=== PATIENT | male | born 1955 | race Caucasian/White ===

== ENCOUNTER 2020-04-22 18:23 | Inpatient (IN) | payer BC, MEDICARE ==
[~2020-04-22 18:23] MED LIST: AUGMENTIN 875-1 EACH PO; BREO ELLIPTA 21 EACH INH; CEFUROXIME250 MG PO; CLARITIN 10MG T10 MG PO; CRESTOR5 MG PO; DALIRESP500 MCG PO; DIGOX125 MCG PO; DIGOXIN250 MCG PO; ELIQUIS5 MG PO; HUMIBID LA TAB600 MG PO; IPRAT-ALBUT 0.5-3 ML INH; K-DUR TAB 20 M20 MEQ PO; LEVAQUIN500 MG PO; LEXAPRO TAB 1010 MG PO; LOSARTAN POTASS25 MG PO; LUPRON DEPOT11.25 MG IM; MEDROL DOSEPAK 24 MG PO; METFORMIN HCL500 MG PO; METOPROLOL SUC100 MG PO; METOPROLOL SUCC25 MG PO; METOPROLOL SUCC50 MG PO; NEXIUM40 MG PO; POTASSIUM CHLO20 ME2 PO; PREDNISONE 10 M10 MG PO; PROAIR HFA8.5 GM INH; TRELEGY ELLIPT1 EACH INH; VITAMIN D250 MCG PO
[2020-04-22 19:49] LABS: HEMOGLOBIN 14.7 gm/dl (14.0-17.5); RED BLOOD COUNT 4.74 M/UL (4.20-5.50); WHITE BLOOD COUNT 8.7 K/UL (4.5-11.0)
[2020-04-22 20:41] LABS: BUN/CREATININE RATIO 20 (0-10)
[2020-04-22] MEDS ORDERED: ASPIRIN CHEWABL81 MG PO (21:31)
[2020-04-22] MEDS ORDERED: DIGOX125 MCG PO (21:32)
[2020-04-22] MEDS ORDERED: TRELEGY ELLIPT1 EACH INH (21:34)
[2020-04-23 04:52] LABS: RED BLOOD COUNT 4.28 M/UL (4.20-5.50)
[2020-04-23 05:16] LABS: WHITE BLOOD COUNT 4.8 K/UL (4.5-11.0)
[2020-04-23 05:51] LABS: BUN/CREATININE RATIO 32 (0-10)
[2020-04-24 05:21] LABS: HEMOGLOBIN 12.8 gm/dl (14.0-17.5); RED BLOOD COUNT 4.16 M/UL (4.20-5.50)
[2020-04-24 05:24] LABS: WHITE BLOOD COUNT 9.9 K/UL (4.5-11.0)
[2020-04-24 05:41] LABS: BUN/CREATININE RATIO 35 (0-10)
[2020-04-25 06:45] LABS: HEMOGLOBIN 12.1 gm/dl (14.0-17.5); RED BLOOD COUNT 3.96 M/UL (4.20-5.50)
[2020-04-25 07:12] LABS: BUN/CREATININE RATIO 32 (0-10)
[2020-04-26 03:44] LABS: HEMOGLOBIN 11.9 gm/dl (14.0-17.5); RED BLOOD COUNT 3.88 M/UL (4.20-5.50); WHITE BLOOD COUNT 7.8 K/UL (4.5-11.0)
[2020-04-26 04:16] LABS: BUN/CREATININE RATIO 43 (0-10)
[2020-04-26] MEDS ORDERED: DOXYCYCLINE HY100 MG PO (10:44)
[2020-04-26] MEDS ORDERED: DEXAMETHASONE2 MG PO (10:44)
[2020-04-26] MEDS ORDERED: INSULIN AS100 UNIT/3 SQ (10:52)
== END 2020-04-26 15:14 | disposition home or self-care (01) | DRG 871 ==
LOC: ER1 18:23 → CDU 20:56 → M/S 04-23 10:52
PROVIDERS: Emergency Medicine; Internal Medicine; ADMIT Internal Medicine
PROC: 8E0ZXY6 Isolation (ICD-10-PCS; principal; 2020-04-22)
PROC: XW033E5 Introduction of Remdesivir Anti-infective into Peripheral Vein, Percutaneous Approach, New Technology Group 5 (ICD-10-PCS; 2020-04-23)
DX: A41.9 Sepsis, unspecified organism (principal); U07.1 COVID-19; J12.89 Other viral pneumonia; J44.0 Chronic obstructive pulmonary disease with (acute) lower respiratory infection; J44.1 Chronic obstructive pulmonary disease with (acute) exacerbation; R65.20 Severe sepsis without septic shock; I10 Essential (primary) hypertension; E11.9 Type 2 diabetes mellitus without complications; I48.91 Unspecified atrial fibrillation; R00.0 Tachycardia, unspecified; Z79.01 Long term (current) use of anticoagulants; E78.5 Hyperlipidemia, unspecified; Z79.899 Other long term (current) drug therapy; Z79.82 Long term (current) use of aspirin
CPT/HCPCS: 36415; 71045; 80048; 80053; 82550; 82553; 82962; 83605; 83690; 83735; 83874; 83880; 84100; 84484; 85025; 85610; 85730; 86140; 87040; 90471; 93005; 94640; 94664; 94760; 96365; 96366; 96367; 96372; 96375; 96376; 99285; G0378; J0456; J1100; J1650; J2185; J7030

== ENCOUNTER 2020-05-03 13:07 | Emergency (ER) | payer BC ==
[~2020-05-03 13:07] MED LIST changes: +ASPIRIN CHEWABL81 MG PO; +DEXAMETHASONE2 MG PO; +DOXYCYCLINE HY100 MG PO; +INSULIN AS100 UNIT/3 SQ
[2020-05-03 14:32] LABS: HEMOGLOBIN 14.7 gm/dl (14.0-17.5); RED BLOOD COUNT 4.8 M/UL (4.20-5.50); WHITE BLOOD COUNT 16.4 K/UL (4.5-11.0)
[2020-05-03 15:00] LABS: BUN/CREATININE RATIO 42 (0-10)
== END 2020-05-03 20:21 | disposition home or self-care (01) ==
LOC: ER1 13:07
PROVIDERS: Emergency Medicine
DX: E11.65 Type 2 diabetes mellitus with hyperglycemia (principal); R00.0 Tachycardia, unspecified; I10 Essential (primary) hypertension; J44.9 Chronic obstructive pulmonary disease, unspecified; Z79.01 Long term (current) use of anticoagulants; Z99.81 Dependence on supplemental oxygen; Z79.84 Long term (current) use of oral hypoglycemic drugs; Z86.16 Personal history of COVID-19
CPT/HCPCS: 71045; 80053; 81001; 82009; 82550; 82553; 82962; 83605; 83690; 83735; 83874; 83880; 84484; 85025; 93005; 96374; 99285; J7030

== ENCOUNTER 2021-03-30 23:09 | Inpatient (IN) | payer BC, MEDICARE ==
[~2021-03-30] VITALS: Ht 175.3 cm; Wt 86.2 kg
[2021-03-31 00:02] LABS: HEMOGLOBIN 15.1 gm/dl (14.0-17.5); RED BLOOD COUNT 4.98 M/UL (4.20-5.50); WHITE BLOOD COUNT 13.5 K/UL (4.5-11.0)
[2021-03-31 00:30] LABS: BUN/CREATININE RATIO 34 (0-10)
[2021-03-31] MEDS ORDERED: FARXIGA10 MG PO (03:25)
[2021-03-31] MEDS ORDERED: ZOFRAN ODT 4 MG4 MG XX (03:28)
[2021-03-31] MEDS ORDERED: PREDNISONE10 MG PO (03:39)
[2021-03-31] MEDS ORDERED: LEVOFLOXACIN500 MG PO (03:40)
--- NOTE | 2021-03-31 14:00 | NUR ---
PT LEFT VIA BED AT THIS TIME TO 5113, FAMILY AT BEDSIDE , ANTONIO BAKER GIVEN REPORT , PT NOTED TO VOID ON HIM SELF , JUST PRIOR ,
[2021-04-01 07:15] LABS: HEMOGLOBIN 13.7 gm/dl (14.0-17.5); RED BLOOD COUNT 4.61 M/UL (4.20-5.50); WHITE BLOOD COUNT 14.7 K/UL (4.5-11.0)
[2021-04-01 07:56] LABS: BUN/CREATININE RATIO 40 (0-10)
[2021-04-02 09:03] LABS: HEMOGLOBIN 14.4 gm/dl (14.0-17.5); RED BLOOD COUNT 4.95 M/UL (4.20-5.50); WHITE BLOOD COUNT 14.8 K/UL (4.5-11.0)
[2021-04-02 09:30] LABS: BUN/CREATININE RATIO 41 (0-10)
[2021-04-03 08:01] LABS: HEMOGLOBIN 14.2 gm/dl (14.0-17.5); RED BLOOD COUNT 4.93 M/UL (4.20-5.50); WHITE BLOOD COUNT 16.2 K/UL (4.5-11.0)
[2021-04-03 08:03] LABS: BUN/CREATININE RATIO 33 (0-10)
[2021-04-03] MEDS ORDERED: CEFUROXIME500 MG PO (15:57)
[2021-04-03] MEDS ORDERED: MEDROL DOSEPAK 24 MG PO (15:57)
[2021-04-03] MEDS ORDERED: HUMIBID LA TAB600 MG PO (15:57)
== END 2021-04-03 18:11 | disposition home or self-care (01) | DRG 189 ==
LOC: ER1 23:09 → CCU 03-31 03:31 → CDU 03-31 03:31 → CCU 03-31 07:27 → M/S 03-31 14:01
PROVIDERS: Physician Assistant; Student in an Organized Health Care Education/Training Program; ADMIT Internal Medicine
DX: J96.21 Acute and chronic respiratory failure with hypoxia (principal); J44.1 Chronic obstructive pulmonary disease with (acute) exacerbation; J44.0 Chronic obstructive pulmonary disease with (acute) lower respiratory infection; Z20.822 Contact with and (suspected) exposure to COVID-19; K21.9 Gastro-esophageal reflux disease without esophagitis; E78.5 Hyperlipidemia, unspecified; E11.9 Type 2 diabetes mellitus without complications; J20.9 Acute bronchitis, unspecified; I10 Essential (primary) hypertension; F17.210 Nicotine dependence, cigarettes, uncomplicated; I48.0 Paroxysmal atrial fibrillation; Z79.01 Long term (current) use of anticoagulants; Z79.82 Long term (current) use of aspirin; Z99.81 Dependence on supplemental oxygen; Z90.49 Acquired absence of other specified parts of digestive tract; Z90.79 Acquired absence of other genital organ(s); Z85.46 Personal history of malignant neoplasm of prostate; Z79.4 Long term (current) use of insulin
CPT/HCPCS: 36415; 36600; 71045; 71046; 80048; 80053; 80162; 82550; 82553; 82803; 82962; 83874; 83880; 84484; 85025; 93005; 94640; 94664; 94760; 99285; J0692; J1650; J2920; J2930; J3370; J7030; U0002

== ENCOUNTER → 2021-12-05 | Outpatient (CLI) | payer BC, MEDICARE ==
[~2021-12-05] MED LIST changes: +CEFUROXIME500 MG PO; +FARXIGA10 MG PO; +LEVOFLOXACIN500 MG PO; +PREDNISONE10 MG PO; +ZOFRAN ODT 4 MG4 MG XX
== END ==
LOC: SLEEP 14:26
DX: G47.33 Obstructive sleep apnea (adult) (pediatric) (principal)
CPT/HCPCS: 95810